=== PATIENT | female | born 1990 | race American Indian/Alaskan Native ===

== ENCOUNTER 2017-01-22 19:45 | Emergency (ER) | payer OTHER ==
[2016-12-26 12:08] VITALS: BMI 30.9
--- NOTE | 2017-01-22 20:44 | OBHP ---
Datetime: 01/22/2017 20:34 IP Adm Impression: Term, intrauterine IP Chief Complaint Other: Vaginal pain/pressure/feeling baby is low IP Admit Plan: Observation/Evaluation; Discharge home Admit Comment, IP Provider: IUP at 38w c/o vaginal pressure/pain/ feeling baby is low...no CTX. no VB. No SROM; +FM care CP Dr Barrett records rev'd GBS neg Last sono Jan 09 - ceph 6lb6oz PMH: asthma PSH: POBGYH: 3 ; Chl treated in past Allergy: seafood PSOH: denies smoking; ETOH drugs A; IUP at 38w vaginal pain not in labor P:continued monitoring...then will dicharge home; follow up tmrw as scheduled labor instructions; pre-eclampsia warning Pelvic Type - PN: Adequate Extremities - PN: Normal Abdomen - PN: Normal Back - PN: Normal Lungs - PN: Normal Thyroid - PN: Normal Neurologic - PN: Normal HEENT - PN: Normal General - PN: Normal FHR - Baseline A Provider: 140 Membranes, Provider: Intact Contraction Comments Provider: none Comments, ACOG Physical Exam: ROS: General - no fatigue HEENT: No FISH; no visual disturbance CV: no CP; no palpitations RESP: No Cough; no SOB GI: No N/V/D : No F/U/D MS: no joint pain Pool Provider: Negative IP Hx Assessment: The History has been Reviewed and is Current EGA AdmitDate IP: 38.4 Vital Signs Provider: Reviewed IP Chief Complaint: Other NICHD Variability Prov Fetus A: Moderate 6-25bpm NICHD Accel Fetus A IP Provider: 10X10 FHR Category Provider Fetus A: Category I NICHD Decel Fetus A IP Provider: None Dilatation, Provider: 0 Effacement, Provider: 0 Station, Provider: high Genitourinary Exam: Normal DTRs - PN: Normal
== END 2017-01-22 21:20 | disposition home or self-care (01) ==
LOC: H.EROB2 19:45
DX: O47.1 False labor at or after 37 completed weeks of gestation (principal); Z3A.38 38 weeks gestation of pregnancy

== ENCOUNTER 2017-02-02 08:27 | Inpatient (IN) | payer OTHER ==
[2017-02-02] MEDS: Lactated Ringer's 1,000 ML IV SCH ×3 (09:00→14:30)
[2017-02-02 09:03] VITALS: BMI 32.5
[2017-02-02 10:00] LABS: BASO % 0.3 % (0.0-2.0); EOS # 0.1 K/uL (0.0-0.7); EOS % 1.3 % (0.0-4.0); LYMPH # 1.5 K/uL (1.0-4.3); LYMPH % 20.1 % (20.0-40.0); MEAN CORPUSCULAR HEMOGLOBIN 32.3 pg (27.0-31.0); MEAN CORPUSCULAR HGB CONC 32.6 g/dL (33.0-37.0); MEAN PLATELET VOLUME 10.3 fl (7.2-11.7); MONO # 0.5 K/uL (0.0-0.8); MONO % 6.3 % (0.0-10.0); NEUT # 5.5 K/uL (1.8-7.0); NRBC % 0.2 % (0.0-0.0); WHITE BLOOD COUNT 7.7 K/uL (4.8-10.8)
[2017-02-02] MEDS ORDERED: Oxytocin 30 units/LR 500ML 500 ML IV ONE (10:37)
[2017-02-02] MEDS ORDERED: Lidocaine 2% Inj (20ml) ONE (11:31)
[2017-02-02] MEDS ORDERED: Lactated Ringer's 1,000 ML IV SCH (13:30)
[2017-02-02] MEDS ORDERED: Fentanyl/Bupivacaine HCl 250 ML EPI ONE (13:34)
[2017-02-02] MEDS ORDERED: Bupivacaine HCl 0.25% PF (10 ml) Inj ONE (13:34)
--- NOTE | 2017-02-02 17:14 | OBPN ---
Datetime: 02/02/2017 17:07 IP Progress Impression: Normal progression of labor; Reassuring heart rate IP Procedures: Sterile Vag Exam IP Progress Plan: Continue present management Contraction Comments Provider: q2min FHR - Baseline A Provider: 120s IP Progress Note Comment: Labor progressing well. +acceleration with scalp stim. Continue current management. Both MWB/FWB reassuring at this time. Vital Signs Provider: Reviewed; Within Normal Limits NICHD Accel Fetus A IP Provider: 15X15 NICHD Variability Prov Fetus A: Moderate 6-25bpm Dilatation, Provider: 8 Effacement, Provider: 100 Station, Provider: 0 NICHD Decel Fetus A IP Provider: Early Datetime: 02/02/2017 09:11 Gestation - Est Wks by US: 40.0 FHR Category Provider Fetus A: Category I Datetime: 01/22/2017 20:34 Pool Provider: Negative Membranes, Provider: Intact Datetime: 11/14/2016 16:03 Presentation-Admit: Vertex
[2017-02-02] MEDS ORDERED: Oxycodone/Acetaminophen 5/325 mg Tab PO PRN ×2 (17:52→19:41)
[2017-02-02] MEDS ORDERED: Benzocaine/Menthol SPRAY TOP PRN (18:05)
--- NOTE | 2017-02-02 18:14 | OBDS ---
MATERNAL INFORMATION Provider Comments: Normal spontaneous vaginal delivery. Patient had a viable female with Apgars of 9 and 9 at 1 and 5 minutes respectively. Loose n uchal cord 1 reduced. delivered via COURTNEY position. Placenta delivered spontaneously. Lacerati on repaired, as above. Uterus firm and appropriately hemostatic following delivery. No complications. Estimated blood loss 300 mL LABOR SUMMARY EDC: 02/01/2017 00:00 No. Babies in Womb: 1 Attempted: No Labor Anesthesia: Epidural LABOR INFORMATION Oxytocin: Induction Group B Beta Strep: Negative MEMBRANES Membranes Rupture Method: Artificial Rupture of Membranes: 02/02/2017 14:45 Amniotic Fluid Color: Clear Amniotic Fluid Amount: Moderate Amniotic Fluid Odor: Normal VAGINAL DELIVERY Episiotomy: None Laceration Extension: First Degree Laceration Type: Perineal Laceration Repair: Yes Laceration Repair Note: First-degree midline perineal laceration. Area infiltrated with 1% lidocaine . Laceration repaired with 2. 0 Rapide without complication. Patient tolerated well. No complications . BABY A INFORMATION : N/A INFORMATION BABY A Gestational Age at Delivery: 40.0 Gestational Status: Term
[2017-02-02] MEDS: Benzocaine/Menthol SPRAY TOP PRN (22:46)
[2017-02-03 07:28] LABS: BASO % 0.4 % (0.0-2.0); EOS # 0.1 K/uL (0.0-0.7); EOS % 1.4 % (0.0-4.0); HEMATOCRIT 34.2 % (34.0-47.0); LYMPH # 1.8 K/uL (1.0-4.3); LYMPH % 19.3 % (20.0-40.0); MEAN CORPUSCULAR HEMOGLOBIN 32.6 pg (27.0-31.0); MEAN CORPUSCULAR HGB CONC 32.9 g/dL (33.0-37.0); MONO # 0.7 K/uL (0.0-0.8); MONO % 7.6 % (0.0-10.0); NEUT # 6.6 K/uL (1.8-7.0); NEUT % 71.3 % (50.0-75.0); RED CELL DISTRIBUTION WIDTH 16.2 % (11.5-14.5); WHITE BLOOD COUNT 9.2 K/uL (4.8-10.8)
--- NOTE | 2017-02-03 10:26 | OBPPN ---
Datetime: 02/03/2017 10:23 PP Pain Prov: Within normal limits PP Nausea Prov: Denies PP Flatus Prov: Yes PP Breasts Prov: Normal PP Heart Prov: Normal PP Lungs Prov: Normal PP Abdomen/Uterus Prov: Not Done PP Lochia Prov: Not Done PP Vulva/Perineum Prov: Not Done PP CVA Tenderness Prov: Normal PP Extremities Prov: Normal PP Impression Prov: Normal progression PP Plan Prov: Continue present management PP Progress Note Prov: Patient doing well no complaints ambulating tolerating diet without difficult y Vital signs stable afebrile Uterus firm below the umbilicus Extremities no Homans day #1 Ambulate, analgesia, regular diet anticipate discharge in a.m. Vital Signs Provider PP: Reviewed
[2017-02-04] MEDS: Benzocaine/Menthol SPRAY TOP PRN (06:13)
--- NOTE | 2017-02-04 10:15 | OBDCSUM ---
Datetime: 02/04/2017 10:14 Discharged to, Provider: Home Follow up at, Provider: OB Disch Instr Activity: Normal activity Disch Instr Diet: Regular Discharge Instructions, Provider: Routine instructions given Discharge Diagnosis, Provider: Term Delivered Discharge Time: 02/04/2017 10:14 Follow up in weeks, Provider: 6 wks Disch Referrals: None Contraception discussed, Prov: Yes Disch Activity Restrictions: No sexual activity; Nothing in vagina - [place], tampons, douche Discharge Comment, Provider: Return to hospital if increased bleeding, pain, temp Datetime: 01/22/2017 21:12 Follow up in weeks, Provider: 6 week
--- NOTE | 2017-02-04 10:15 | OBPPN ---
Datetime: 02/04/2017 10:13 PP Pain Prov: Within normal limits PP Nausea Prov: Denies PP Flatus Prov: Yes PP Breasts Prov: Normal PP Heart Prov: Normal PP Lungs Prov: Normal PP Abdomen/Uterus Prov: Normal PP Lochia Prov: Normal PP Vulva/Perineum Prov: Normal PP CVA Tenderness Prov: Normal PP Extremities Prov: Normal PP Comments Phys Exam Prov: Fundus firm under umbilicus PP Impression Prov: Normal progression PP Plan Prov: Continue present management PP Progress Note Prov: Patient denies CP, no SOB, no N/V, tolerating PO diet, ambulating/voiding wel l, mild lochia, abdominal pain tolerable with meds A/P PPD #2 1. Discharge patient home 2. Discharge instructions reviewed IP PP Procedures: None Vital Signs Provider PP: Reviewed; Within Normal Limits
[2017-02-04] MEDS ORDERED: Measles, Mumps, and Rubella Vaccine SC ONE (10:36)
== END 2017-02-04 13:05 | disposition home or self-care (01) | DRG 373 ==
LOC: H.EROB2 08:27 → H.L&D 09:03 → H.OB/GYN 20:27
PROVIDERS: ADMIT Obstetrics & Gynecology; ATTEND Obstetrics & Gynecology
PROC: 0HQ9XZZ Repair Perineum Skin, External Approach (ICD-10-PCS; principal; 2017-02-02)
PROC: 10E0XZZ Delivery of Products of Conception, External Approach (ICD-10-PCS; 2017-02-02)
PROC: 4A1HXCZ Monitoring of Products of Conception, Cardiac Rate, External Approach (ICD-10-PCS; 2017-02-02)
DX: O70.0 First degree perineal laceration during delivery (principal); J45.909 Unspecified asthma, uncomplicated; O69.81X0 Labor and delivery complicated by cord around neck, without compression, not applicable or unspecified; O75.89 Other specified complications of labor and delivery; Z37.0 Single live birth